=== PATIENT | female | born 1990 | race Two or more races ===

== ENCOUNTER → 2017-12-06 | Outpatient (CLI) | payer OTHER | END | disposition home or self-care (01) | LOC: KCIC US 14:17 | DX: O26.842 Uterine size-date discrepancy, second trimester (principal); Z3A.24 24 weeks gestation of pregnancy | CPT/HCPCS: 76805 ==

== ENCOUNTER 2018-02-24 21:58 | Observation (INO) | payer OTHER ==
[2016-01-04 21:19] VITALS: BP 109/50
[~2018-02-24 21:58] MED LIST: DOCU-109 PO; FLUT100D IH; HYDR-2758 PO; IBUP-1060 PO; OXYC-323 PO; SERT50TA PO
[2018-02-24 22:56] LABS: BILIRUBIN,URINE NEGATIVE (NEG); CLARITY,URINE CLOUDY; COLOR,URINE AMBER; NITRITE,URINE NEGATIVE (NEG); PROTEIN,URINE 30 mg/dL (NEG-TRACE)
[2018-02-24] MEDS ORDERED: IV RINGERS,LACTATED 1000ML 1,000 ML IV PRN (23:00)
[2018-02-24 23:04] LABS: AMPHETAMINE/METHAMPHETAMINE NEG (NEG); BARBITURATES NEG (NEG); BENZODIAZEPINES NEG (NEG); CANNABINOIDS POS (NEG); COCAINE NEG (NEG); METHADONE NEG (NEG); OPIATES NEG (NEG); PHENCYCLIDINE NEG (NEG)
[2018-02-24 23:05] LABS: BACTERIA,URINE MODERATE /HPF (0-FEW); RBC,URINE 0 /HPF (0-2); SQUAMOUS EPITHELIAL CELL,UR MANY /LPF
== END 2018-02-25 00:14 | disposition home or self-care (01) ==
LOC: 3 SO LND 21:58
PROVIDERS: ADMIT Obstetrics & Gynecology; ATTEND Obstetrics & Gynecology
DX: O26.893 Other specified pregnancy related conditions, third trimester (principal); M54.9 Dorsalgia, unspecified; Z3A.34 34 weeks gestation of pregnancy
CPT/HCPCS: 80307; 81001; 87086; G0378; G0379; J7120; G0479

== ENCOUNTER 2018-03-27 05:13 | Inpatient (IN) | payer OTHER ==
[2018-03-27] VITALS (7 sets, daily range): BP systolic 96–141; BP diastolic 41–77
[~2018-03-27] VITALS: Ht 162.6 cm; Wt 126.6 kg
[2018-03-27] MEDS ORDERED: IV RINGERS,LACTATED 1000ML 1,000 ML IV SCH (05:16)
[2018-03-27 06:17] LABS: BILIRUBIN,URINE NEGATIVE (NEG); CLARITY,URINE CLEAR; COLOR,URINE YELLOW; NITRITE,URINE NEGATIVE (NEG); PH,URINE 6.5; PROTEIN,URINE NEGATIVE (NEG-TRACE)
[2018-03-27 06:22] LABS: BARBITURATES NEG (NEG); BENZODIAZEPINES NEG (NEG); CANNABINOIDS NEG (NEG); COCAINE NEG (NEG); METHADONE NEG (NEG); OPIATES NEG (NEG); PHENCYCLIDINE NEG (NEG)
[2018-03-27 06:26] LABS: AMPHETAMINE/METHAMPHETAMINE NEG (NEG)
[2018-03-27] MEDS ORDERED: CITRIC ACID/SODIUM CITRATE 30 ML SOLUTION. PO ONE (06:30)
[2018-03-27] MEDS ORDERED: ceFAZolin SODIUM 3 GM in IV DEXTROSE 5% 100ML 100 ML IV ONE (06:30)
[2018-03-27 06:50] LABS: BACTERIA,URINE MANY /HPF (0-FEW); RBC,URINE OCC /HPF (0-2); SQUAMOUS EPITHELIAL CELL,UR MANY /LPF
[2018-03-27 07:00] LABS: HEMATOCRIT 35.9 % (36.0-47.0); HEMOGLOBIN 12.2 g/dL (12.0-15.5); RED BLOOD COUNT 4.36 x10^6/uL (3.50-5.40); RED CELL DISTRIBUTION WIDTH 14.6 % (11.5-14.5); WHITE BLOOD COUNT 12.6 x10^3/uL (4.0-11.0)
[2018-03-27] MEDS ORDERED: PHENYLEPHRINE in 0.9% NACL PF 1 MG/10 ML SYRINGE. IV ONE (07:28)
[2018-03-27] MEDS ORDERED: OXYTOCIN 10 UNIT/ML VIAL. ONE ×2 (07:29→09:09)
[2018-03-27] MEDS ORDERED: FAMOTIDINE 20 MG/2 ML VIAL ONE (07:30)
[2018-03-27] MEDS ORDERED: METOCLOPRAMIDE HCL 10 MG/2 ML VIAL. ONE (07:31)
[2018-03-27] MEDS ORDERED: fentaNYL PF VIAL 100 MCG/2 ML VIAL ONE (07:34)
[2018-03-27] MEDS ORDERED: MORPHINE PF 5 MG/10 ML VIAL. ONE (07:34)
[2018-03-27] MEDS: IV RINGERS,LACTATED 1000ML 1,000 ML IV PRN ×3 (07:38→20:35)
[2018-03-27] MEDS ORDERED: BUPIVACAINE MPF 0.75% DEXTROSE 2 ML AMPUL. ONE (07:53)
--- NOTE | 2018-03-27 08:17 | PDOC1 ---
OB - History Hx of Present Care: Good Care Ultrasounds: Normal mid trimester US Obstetrical Complications: None Medical Complications: None Past Family/Social History * Past Medical, Surgical, Family and Obstetric Histories reviewed from chart. Rubella: Immune RPR/VDRL: Negative GBS Status: Negative HBsAG: Negative OB - Chief Complaint & HPI Date of Admission: Date of Admission: Mar 27, 2018 at 05:13 Chief Complaint/History : 4 Para: 2 EGA: 39 Reason for admission: section (and BTL) Indication for : desires repeat Admission Nurse Assessment Rev: Yes OB - Admission Exam Physical Exam Vitals: VS - Last 72 Hours, by Label Date Time Temp Pulse Resp B/P (MAP) Pulse Ox O2 Delivery O2 Flow Rate FiO2 03/27/18 05:59 98.7 78 20 141/77 (98) Room Air 98.7 HEENT: Normal Heart: Regular Rate Lungs: Clear Abdomen: Gravid, Non tender, Soft Extremities: Edema Reflexes: Normal Cervical Dilatation: 1cm Effacement: 75% Station: -3 Membranes: Intact Heart Rate: Normal Accelerations: Accelerations Present Decelerations: No decelerations Contractions on Admission: 6-10 Minutes Apart Intensity: Mild Text A: 39 wks IUP Previous c/s Desires BTL P: Admit for repeat c/s and BTL. VASILIY BALDERRAMA Jr, MD Mar 27, 2018 08:17
--- NOTE | 2018-03-27 09:28 | PDOC4 ---
OB Operative Note PRE OP DIAGNOSIS: Previoujs C- section POST OP DIAGNOSIS: Previous C- section OPERATION PERFORMED: R KTSC (and BTL) Surgeon Dr. Figueroa Anesthesia: Regional (Spinal) Blood Loss 500 ml Specimen placenta and infant OB Findings: Position (Vertex), Sex (Female), (8/9), Weight (8 Lb 7 oz.) Complications none Additional Remarks ptVASILIY Zuñiga Jr, MD Mar 27, 2018 09:28
[2018-03-27] MEDS ORDERED: 0.9 % SODIUM CHLORIDE 10 ML DISP.SYRIN. IV PRN (09:30)
[2018-03-27] MEDS ORDERED: KETOROLAC 30 MG/ML VIAL. IV PRN (09:30)
[2018-03-27] MEDS ORDERED: MAG HYDROX/ALUMINUM HYD/SIMETH 30 ML ORAL.SUSP PO PRN (09:30)
[2018-03-27] MEDS ORDERED: ONDANSETRON PF 4 MG/2 ML VIAL. IV PRN (09:30)
[2018-03-27] MEDS ORDERED: OXYTOCIN 30 UNIT/500 ML PREMIX 500 ML IV PRN (09:30)
[2018-03-27] MEDS ORDERED: ZOLPIDEM 5 MG TABLET. PO PRN (09:30)
--- NOTE | 2018-03-27 10:27 | OP ---
DATE OF SURGERY: 03/27/2018 PREOPERATIVE DIAGNOSES: 1. 39 weeks' intrauterine . 2. Previous . 3. Desires bilateral tubal ligation. POSTOPERATIVE DIAGNOSES: 1. 39 weeks' intrauterine . 2. Previous . 3. Desires bilateral tubal ligation. PROCEDURE: Repeat low transverse section and bilateral tubal ligation. SURGEON: Vasiliy Figueroa MD. ANESTHESIA: Spinal. ESTIMATED BLOOD LOSS: 500 mL. COMPLICATIONS: None. FINDINGS: Viable female , Apgars 8 and 9, weight 8 pounds 7 ounces. Three-vessel cord placenta delivered manually intact. SUMMARY: A 28-year-old 4, para 2 at 39 weeks' gestation who presented for repeat and bilateral tubal ligation. She was counseled on the risks, benefits and expectations as well as the failure rate of tubal ligation and voiced clear understanding to proceed. DESCRIPTION OF PROCEDURE: The patient was taken to surgery suite and placed in dorsal supine position. She was prepped with ChloraPrep and draped in sterile fashion. After adequate anesthesia, a Pfannenstiel skin incision was made with scalpel down to and through the fascia. The fascia was extended laterally using curved Asencio scissors. The superior edge of the fascia was grasped with 2 Los clamps and dissected free of the abdominal rectus muscles using blunt dissection along with Bovie cautery. The same process took place inferiorly. Peritoneum was grasped with 2 hemostats and entered sharply with Metzenbaum scissors. This incision was extended superiorly as well as inferiorly. The Nitesh ring retractor was placed. A low transverse hysterotomy incision made with scalpel down to and through the amniotic sac. Hysterotomy incision was extended laterally and superiorly digitally. With the aid of fundal pressure, the 's head was delivered in a smooth atraumatic manner. With additional fundal pressure, the anterior shoulder was delivered followed by posterior shoulder and rest of the female infant was delivered. Infant was suctioned with bulb syringe orally and nasally, umbilical was clamped twice and cut. Viable female infant was then handed to waiting nursing staff. Umbilical cord blood was then obtained. Three-vessel cord placenta was delivered manually intact. The uterus was exteriorized and cleared of clot and debris with moist lap. Hysterotomy incision reapproximated using 1-0 Vicryl suture running locked fashion. The uterus palpated firm. Fallopian tubes, ovaries appeared normal bilaterally. Posterior cul-de-sac was cleared of clot and debris with moist lap. Hysterotomy incision was reviewed and was hemostatic. The right fallopian tube was grasped with 2 Babcocks and the mesosalpinx was undermined with Bovie cautery. Proximal and distal ends of the fallopian tube were tied with plain gut suture. The midsection of fallopian tube was removed with the aid of Metzenbaum scissors. Two telescoping ends were visualized and hemostatic. Same process took place with left adnexa. The uterus was then returned to the abdomen. Pericolic gutters were cleared of clot and debris with moist lap. Interceed was placed over the hysterotomy incision in an inverted T fashion. The Nitesh ring retractor was removed. The peritoneum was reapproximated using 1-0 Vicryl suture in a running fashion. Fascia was reapproximated with 0 Vicryl suture in a running fashion. Skin was reapproximated with 4-0 Vicryl suture in subcuticular manner. Prevena wound VAC was placed. The patient tolerated the procedure well and was taken to recovery room in stable condition. Sponge and needle count correct x 3. VASILIY FIGUEROA MD DR: RYLAND/vita JOB#: [id number] / [id number]
[2018-03-27] MEDS ORDERED: diphenhydrAMINE 50 MG/ML VIAL IVP PRN (13:10)
[2018-03-27] MEDS ORDERED: diphenhydrAMINE ORAL ELIXIR 12.5 MG/5 ML ML PO PRN (13:15)
[2018-03-27] MEDS ORDERED: FERROUS SULFATE 325 MG TABLET. PO SCH (17:00)
[2018-03-27] MEDS: IBUPROFEN 800 MG TABLET. PO PRN (20:33)
[2018-03-27] MEDS: diphenhydrAMINE ORAL ELIXIR 12.5 MG/5 ML ML PO PRN (20:33)
[2018-03-27] MEDS: DOCUSATE SODIUM 100 MG CAPSULE. PO PRN (20:33)
[2018-03-28 00:09] VITALS: BP 96/55
[2018-03-28] MEDS: oxyCODONE/APAP 5/325 1 TAB TABLET PO PRN ×3 (06:04→18:29)
[2018-03-28] MEDS: IBUPROFEN 800 MG TABLET. PO PRN ×2 (06:04→18:28)
[2018-03-28 06:08] LABS: BASO % 0 % (0-3); EOS # 0.2 x10^3/uL (0.0-0.7); EOS % 2 % (0-3); HEMATOCRIT 29.8 % (36.0-47.0); LYMPH # 2.4 x10^3/uL (1.0-4.8); LYMPH % 22 % (24-48); MEAN CORPUSCULAR HEMOGLOBIN 28 pg (25-35); MEAN CORPUSCULAR HGB CONC 34 g/dL (31-37); MEAN CORPUSCULAR VOLUME 83 fL (79-100); MONO # 0.7 x10^3/uL (0.0-1.1); MONO % 6 % (0-9); NEUT # 7.7 x10^3uL (1.8-7.7); NEUT % 70 % (31-73); PLATELET COUNT 245 x10^3/uL (140-400); RED BLOOD COUNT 3.58 x10^6/uL (3.50-5.40); RED CELL DISTRIBUTION WIDTH 14.7 % (11.5-14.5); WHITE BLOOD COUNT 10.9 x10^3/uL (4.0-11.0)
[2018-03-28 06:42] VITALS: BP 118/65
--- NOTE | 2018-03-28 08:38 | PDOC ---
OB Progress Note Date of Service 03/28/18 Time of Evaluation 0835 Notes Pt. feeling well. Pain controlled. Lab Laboratory Tests Test 03/27/18 05:43 03/27/18 06:30 03/28/18 06:00 Urine Collection Type Unknown Urine Color Yellow Urine Clarity Clear Urine pH 6.5 Urine Specific Holton 1.020 Urine Protein Negative mg/dL (NEG-TRACE) Urine Glucose (UA) Negative mg/dL (NEG) Urine Ketones (Stick) Negative mg/dL (NEG) Urine Blood Negative (NEG) Urine Nitrite Negative (NEG) Urine Bilirubin Negative (NEG) Urine Urobilinogen Dipstick 1.0 mg/dL (0.2 mg/dL) Urine Leukocyte Esterase Negative (NEG) Urine RBC Occ /HPF (0-2) Urine WBC 1-4 /HPF (0-4) Urine Squamous Epithelial Cells Many /LPF Urine Bacteria Many /HPF (0-FEW) Urine Mucus Mod /LPF Urine Opiates Screen Neg (NEG) Urine Methadone Screen Neg (NEG) Urine Barbiturates Neg (NEG) Urine Phencyclidine Screen Neg (NEG) Urine Amphetamine/Methamphetamine Neg (NEG) Urine Benzodiazepines Screen Neg (NEG) Urine Cocaine Screen Neg (NEG) Urine Cannabinoids Screen Neg (NEG) Urine Ethyl Alcohol Neg (NEG) White Blood Count 12.6 x10^3/uL (4.0-11.0) 10.9 x10^3/uL (4.0-11.0) Red Blood Count 4.36 x10^6/uL (3.50-5.40) 3.58 x10^6/uL (3.50-5.40) Hemoglobin 12.2 g/dL (12.0-15.5) 10.0 g/dL (12.0-15.5) Hematocrit 35.9 % (36.0-47.0) 29.8 % (36.0-47.0) Mean Corpuscular Volume 82 fL (79-100) 83 fL (79-100) Mean Corpuscular Hemoglobin 28 pg (25-35) 28 pg (25-35) Mean Corpuscular Hemoglobin Concent 34 g/dL (31-37) 34 g/dL (31-37) Red Cell Distribution Width 14.6 % (11.5-14.5) 14.7 % (11.5-14.5) Platelet Count 303 x10^3/uL (140-400) 245 x10^3/uL (140-400) Treponema pallidum Antibody Nonreactive (Nonreactive) Neutrophils (%) (Auto) 70 % (31-73) Lymphocytes (%) (Auto) 22 % (24-48) Monocytes (%) (Auto) 6 % (0-9) Eosinophils (%) (Auto) 2 % (0-3) Basophils (%) (Auto) 0 % (0-3) Neutrophils # (Auto) 7.7 x10^3uL (1.8-7.7) Lymphocytes # (Auto) 2.4 x10^3/uL (1.0-4.8) Monocytes # (Auto) 0.7 x10^3/uL (0.0-1.1) Eosinophils # (Auto) 0.2 x10^3/uL (0.0-0.7) Basophils # (Auto) 0.0 x10^3/uL (0.0-0.2) Laboratory Tests Test 03/28/18 06:00 White Blood Count 10.9 x10^3/uL (4.0-11.0) Red Blood Count 3.58 x10^6/uL (3.50-5.40) Hemoglobin 10.0 g/dL (12.0-15.5) Hematocrit 29.8 % (36.0-47.0) Mean Corpuscular Volume 83 fL (79-100) Mean Corpuscular Hemoglobin 28 pg (25-35) Mean Corpuscular Hemoglobin Concent 34 g/dL (31-37) Red Cell Distribution Width 14.7 % (11.5-14.5) Platelet Count 245 x10^3/uL (140-400) Neutrophils (%) (Auto) 70 % (31-73) Lymphocytes (%) (Auto) 22 % (24-48) Monocytes (%) (Auto) 6 % (0-9) Eosinophils (%) (Auto) 2 % (0-3) Basophils (%) (Auto) 0 % (0-3) Neutrophils # (Auto) 7.7 x10^3uL (1.8-7.7) Lymphocytes # (Auto) 2.4 x10^3/uL (1.0-4.8) Monocytes # (Auto) 0.7 x10^3/uL (0.0-1.1) Eosinophils # (Auto) 0.2 x10^3/uL (0.0-0.7) Basophils # (Auto) 0.0 x10^3/uL (0.0-0.2) Medications Current Medications Ringer's Solution 1,000 ml @ 1,000 mls/hr Q1H IV Last administered on at 07:39; Start 03/27/18 at 05:16; Stop 03/27/18 at 06:15; Status DC Ringer's Solution 1,000 ml @ 125 mls/hr Q8H PRN IV hydration Last administered on 03/27/18at 20:35; Start 03/27/18 at 05:30 Cefazolin Sodium 3 gm/Dextrose 100 ml @ 200 mls/hr 1X ONCE IV Last administered on 03/27/18at 07:38; Start 03/27/18 at 06:30; Stop 03/27/18 at 06:59 ; Status DC Citric Acid/ Sodium Citrate (Bicitra) 30 ml 1X ONCE PO Last administered on at 07:38; Start 03/27/18 at 06:30; Stop 03/27/18 at 06:31; Status DC Ephedrine Sulfate (Akovaz) 50 mg STK-MED ONCE .ROUTE ; Start 03/27/18 at 07:28; Stop 03/27/18 at 07:30; Status DC Phenylephrine HCl (PHENYLEPHRINE in 0.9% NACL PF) 1 mg STK-MED ONCE IV ; Start 03/27/18 at 07:28; Stop 03/27/18 at 07:30; Status DC Oxytocin (Pitocin) 10 unit STK-MED ONCE .ROUTE ; Start 03/27/18 at 07:29; Stop 03/27/18 at 07:30; Status DC Famotidine (Pepcid Vial) 20 mg STK-MED ONCE .ROUTE ; Start 03/27/18 at 07:30; Stop 03/27/18 at 07:31; Status DC Metoclopramide HCl (Reglan Vial) 10 mg STK-MED ONCE .ROUTE ; Start 03/27/18 at 07:31; Stop 03/27/18 at 07:32; Status DC Morphine Sulfate (Morphine Preservative Free) 5 mg STK-MED ONCE .ROUTE ; Start 03/27/18 at 07:34; Stop 03/27/18 at 07:35; Status DC Fentanyl Citrate (Fentanyl 2ml Vial) 100 mcg STK-MED ONCE .ROUTE ; Start at 07:34; Stop 03/27/18 at 07:35; Status DC Bupivacaine HCl/ Dextrose (Marcaine Spinal 0.75%) 2 ml STK-MED ONCE .ROUTE ; Start 03/27/18 at 07:53; Stop 03/27/18 at 07:54; Status DC Oxytocin (Pitocin) 10 unit STK-MED ONCE .ROUTE ; Start 03/27/18 at 09:09; Stop 03/27/18 at 09:10; Status DC Sodium Chloride (Normal Saline Flush) 3 ml QSHIFT PRN IV AFTER MEDS AND BLOOD DRAWS; Start 03/27/18 at 09:30 Oxytocin/Sodium Chloride 500 ml @ 125 mls/hr CONT PRN IV EXCESSIVE POST- BLEEDING; Start 03/27/18 at 09:30; Stop 03/27/18 at 17:29; Status DC Ibuprofen (Motrin) 800 mg PRN Q8HRS PRN PO INFLAMMATION Last administered on at 06:04; Start 03/27/18 at 09:30 Ondansetron HCl (Zofran) 4 mg PRN Q6HRS PRN IV NAUSEA/VOMITING; Start 03/27/18 at 09:30 Docusate Sodium (Colace) 100 mg PRN BID PRN PO CONSTIPATION Last administered on 03/27/18at 20:33; Start 03/27/18 at 09:30 Al Hydroxide/Mg Hydroxide (Mylanta Plus Xs) 30 ml PRN Q4HRS PRN PO HEARTBURN / GAS; Start 03/27/18 at 09:30 Simethicone (Gas-X) 80 mg PRN AFTMEALHC PRN PO GAS / BLOATING; Start 03/27/18 at 09:30 Diphenhydramine HCl (Benadryl Oral Elixir) 12.5 mg PRN Q6HRS PRN PO ITCHING Last administered on 03/27/18at 20:33; Start 03/27/18 at 09:30 Ferrous Sulfate (Feosol) 325 mg BIDWMEALS PO ; Start 03/27/18 at 17:00 Zolpidem Tartrate (Ambien) 5 mg PRN QHS PRN PO INSOMNIA, MAY REPEAT X1; Start 03/27/18 at 09:30 Oxycodone/ Acetaminophen (Percocet 5/325) 2 tab PRN Q4HRS PRN PO MODERATE PAIN , SEVERE PAIN Last administered on 03/28/18at 06:04; Start 03/27/18 at 09:30 Ketorolac Tromethamine (Toradol 30mg Vial) 30 mg PRN Q6HRS PRN IV PAIN Last administered on 03/27/18at 12:00; Start 03/27/18 at 09:30; Stop 04/01/18 at 09:29 Diphenhydramine HCl (Benadryl) 12.5 mg PRN Q6HRS PRN IVP ITCHING Last administered on 03/27/18at 13:25; Start 03/27/18 at 13:10 Diphenhydramine HCl (Benadryl Oral Elixir) 12.5 mg PRN Q6HRS PRN PO ITCHING; Start 03/27/18 at 13:15; Status Cancel Active Scripts Active Hydrocodone-Apap 5-325 (Hydrocodone Bit/Acetaminophen) 1 Each Tablet 1 Tab PO PRN Q6HRS PRN Percocet 5-325 Mg Tablet (Oxycodone/Acetaminophen) 1 Each Tablet 1-2 Tab PO Q4- 6HRS Ibuprofen 800 Mg Tablet 800 Mg PO PRN Q8HRS PRN Colace (Docusate Sodium) 100 Mg Capsule 100 Mg PO PRN BID PRN Reported Flovent 100MCG Diskus (Fluticasone Propionate) 100 Mcg Disk.w.dev 2 Puff IH BID PRN Zoloft (Sertraline Hcl) 50 Mg Tablet 50 Mg PO DAILY Exam Abd: soft, mild tenderness, fundus firm Prevena in place and dry. Assessment POD#1 s/p repeat c/s and BTL Plan of Care: Continue current Tx, VASILIY Nuñez Jr, MD Mar 28, 2018 08:38
[2018-03-28 10:06] VITALS: BP 110/68
[2018-03-28] MEDS: DOCUSATE SODIUM 100 MG CAPSULE. PO PRN ×2 (10:06→18:28)
[2018-03-28] MEDS: SIMETHICONE 80 MG TAB.CHEW PO PRN ×2 (10:06→18:28)
[2018-03-28] MEDS: diphenhydrAMINE ORAL ELIXIR 12.5 MG/5 ML ML PO PRN (10:06)
[2018-03-28 14:20] VITALS: BP 112/67
--- NOTE | 2018-03-28 17:09 | PATHOLOGY ---
[facility] Accession Number: [id number] . 01 Material submitted: . PART A: LEFT FALLOPIAN TUBE PART B: RIGHT FALLOPIAN TUBE . 01 Clinical history: . Term , previous . 02 Diagnosis: A. Left tubal ligation: - Segment of fallopian tube confirmed. . B. Right tubal ligation: - Segment of fallopian tube confirmed. ([facility] 03/28/2018) QTP/03/28/2018 . 02 Electronically signed: . Filemon Reynolds MD, Pathologist NPI- [id number] . 01 Gross description: . A.The specimen is received in formalin, labeled "Santosortiz, Melissa, left fallopian tube", is a cylindrical segment of diaz-pink rubbery soft tissue measuring 1.3 cm in length and up to 0.4 cm in diameter. The serosa is diaz-pink. Sectioning reveals a well-defined lumen. The specimen is entirely submitted in A1. . B.The specimen is received in formalin, labeled "Santosortiz, Melissa, right fallopian tube", is a cylindrical segment of diaz-pink rubbery soft tissue measuring 1.7 cm in length and up to 0.3 cm in diameter. The serosa is diaz-pink. Sectioning reveals a well-defined lumen. The specimen is entirely submitted in B1. ([facility]; 03/27/2018) SHS/SHS . 02 Pathologist provided ICD-10: Z30.2 . 02 CPT . 502168, 825614 Specimen Comment: A courtesy copy of this report has been sent to Specimen Comment: [phone]. Specimen Comment: Report sent to Performed at: [address] [place] [address] [facility] [address], [place], [place] [id number] MD Riley Kaur MD Phone: [phone] Performed at: [address] [id number] MD Filemon Reynolds MD Phone: [phone]
[2018-03-28] MEDS ORDERED: BISACODYL 10 MG SUPP.RECT. PR PRN (18:45)
[2018-03-28 23:00] VITALS: BP 115/69
[2018-03-29] MEDS: IBUPROFEN 800 MG TABLET. PO PRN ×3 (02:41→23:56)
[2018-03-29] MEDS: oxyCODONE/APAP 5/325 1 TAB TABLET PO PRN ×4 (02:42→21:05)
[2018-03-29] MEDS: SIMETHICONE 80 MG TAB.CHEW PO PRN ×2 (02:42→08:54)
[2018-03-29 06:27] VITALS: BP 114/75
[2018-03-29] MEDS: DOCUSATE SODIUM 100 MG CAPSULE. PO PRN ×2 (08:54→21:05)
--- NOTE | 2018-03-29 12:57 | PDOC ---
OB Progress Note Date of Service 03/28/18 Time of Evaluation 1255 Notes Pt. feeling well. No complaints. Lab Laboratory Tests Test 03/28/18 06:00 White Blood Count 10.9 x10^3/uL (4.0-11.0) Red Blood Count 3.58 x10^6/uL (3.50-5.40) Hemoglobin 10.0 g/dL (12.0-15.5) Hematocrit 29.8 % (36.0-47.0) Mean Corpuscular Volume 83 fL (79-100) Mean Corpuscular Hemoglobin 28 pg (25-35) Mean Corpuscular Hemoglobin Concent 34 g/dL (31-37) Red Cell Distribution Width 14.7 % (11.5-14.5) Platelet Count 245 x10^3/uL (140-400) Neutrophils (%) (Auto) 70 % (31-73) Lymphocytes (%) (Auto) 22 % (24-48) Monocytes (%) (Auto) 6 % (0-9) Eosinophils (%) (Auto) 2 % (0-3) Basophils (%) (Auto) 0 % (0-3) Neutrophils # (Auto) 7.7 x10^3uL (1.8-7.7) Lymphocytes # (Auto) 2.4 x10^3/uL (1.0-4.8) Monocytes # (Auto) 0.7 x10^3/uL (0.0-1.1) Eosinophils # (Auto) 0.2 x10^3/uL (0.0-0.7) Basophils # (Auto) 0.0 x10^3/uL (0.0-0.2) Medications Current Medications Ringer's Solution 1,000 ml @ 1,000 mls/hr Q1H IV Last administered on at 07:39; Start 03/27/18 at 05:16; Stop 03/27/18 at 06:15; Status DC Ringer's Solution 1,000 ml @ 125 mls/hr Q8H PRN IV hydration Last administered on 03/27/18at 20:35; Start 03/27/18 at 05:30 Cefazolin Sodium 3 gm/Dextrose 100 ml @ 200 mls/hr 1X ONCE IV Last administered on 03/27/18at 07:38; Start 03/27/18 at 06:30; Stop 03/27/18 at 06:59 ; Status DC Citric Acid/ Sodium Citrate (Bicitra) 30 ml 1X ONCE PO Last administered on at 07:38; Start 03/27/18 at 06:30; Stop 03/27/18 at 06:31; Status DC Ephedrine Sulfate (Akovaz) 50 mg STK-MED ONCE .ROUTE ; Start 03/27/18 at 07:28; Stop 03/27/18 at 07:30; Status DC Phenylephrine HCl (PHENYLEPHRINE in 0.9% NACL PF) 1 mg STK-MED ONCE IV ; Start 03/27/18 at 07:28; Stop 03/27/18 at 07:30; Status DC Oxytocin (Pitocin) 10 unit STK-MED ONCE .ROUTE ; Start 03/27/18 at 07:29; Stop 03/27/18 at 07:30; Status DC Famotidine (Pepcid Vial) 20 mg STK-MED ONCE .ROUTE ; Start 03/27/18 at 07:30; Stop 03/27/18 at 07:31; Status DC Metoclopramide HCl (Reglan Vial) 10 mg STK-MED ONCE .ROUTE ; Start 03/27/18 at 07:31; Stop 03/27/18 at 07:32; Status DC Morphine Sulfate (Morphine Preservative Free) 5 mg STK-MED ONCE .ROUTE ; Start 03/27/18 at 07:34; Stop 03/27/18 at 07:35; Status DC Fentanyl Citrate (Fentanyl 2ml Vial) 100 mcg STK-MED ONCE .ROUTE ; Start at 07:34; Stop 03/27/18 at 07:35; Status DC Bupivacaine HCl/ Dextrose (Marcaine Spinal 0.75%) 2 ml STK-MED ONCE .ROUTE ; Start 03/27/18 at 07:53; Stop 03/27/18 at 07:54; Status DC Oxytocin (Pitocin) 10 unit STK-MED ONCE .ROUTE ; Start 03/27/18 at 09:09; Stop 03/27/18 at 09:10; Status DC Sodium Chloride (Normal Saline Flush) 3 ml QSHIFT PRN IV AFTER MEDS AND BLOOD DRAWS; Start 03/27/18 at 09:30 Oxytocin/Sodium Chloride 500 ml @ 125 mls/hr CONT PRN IV EXCESSIVE POST- BLEEDING; Start 03/27/18 at 09:30; Stop 03/27/18 at 17:29; Status DC Ibuprofen (Motrin) 800 mg PRN Q8HRS PRN PO INFLAMMATION Last administered on at 02:41; Start 03/27/18 at 09:30 Ondansetron HCl (Zofran) 4 mg PRN Q6HRS PRN IV NAUSEA/VOMITING; Start 03/27/18 at 09:30 Docusate Sodium (Colace) 100 mg PRN BID PRN PO CONSTIPATION Last administered on 03/29/18at 08:54; Start 03/27/18 at 09:30 Al Hydroxide/Mg Hydroxide (Mylanta Plus Xs) 30 ml PRN Q4HRS PRN PO HEARTBURN / GAS; Start 03/27/18 at 09:30 Simethicone (Gas-X) 80 mg PRN AFTMEALHC PRN PO GAS / BLOATING Last administered on 03/29/18at 08:54; Start 03/27/18 at 09:30 Diphenhydramine HCl (Benadryl Oral Elixir) 12.5 mg PRN Q6HRS PRN PO ITCHING Last administered on 03/28/18at 10:06; Start 03/27/18 at 09:30 Ferrous Sulfate (Feosol) 325 mg BIDWMEALS PO ; Start 03/27/18 at 17:00 Zolpidem Tartrate (Ambien) 5 mg PRN QHS PRN PO INSOMNIA, MAY REPEAT X1; Start 03/27/18 at 09:30 Oxycodone/ Acetaminophen (Percocet 5/325) 2 tab PRN Q4HRS PRN PO MODERATE PAIN , SEVERE PAIN Last administered on 03/29/18at 08:54; Start 03/27/18 at 09:30 Ketorolac Tromethamine (Toradol 30mg Vial) 30 mg PRN Q6HRS PRN IV PAIN Last administered on 03/27/18at 12:00; Start 03/27/18 at 09:30; Stop 04/01/18 at 09:29 Diphenhydramine HCl (Benadryl) 12.5 mg PRN Q6HRS PRN IVP ITCHING Last administered on 03/27/18at 13:25; Start 03/27/18 at 13:10 Diphenhydramine HCl (Benadryl Oral Elixir) 12.5 mg PRN Q6HRS PRN PO ITCHING; Start 03/27/18 at 13:15; Status Cancel Bisacodyl (Dulcolax Supp) 10 mg PRN DAILY PRN MS CONSTIPATION Last administered on 03/28/18at 23:33; Start 03/28/18 at 18:45 Active Scripts Active Hydrocodone-Apap 5-325 (Hydrocodone Bit/Acetaminophen) 1 Each Tablet 1 Tab PO PRN Q6HRS PRN Percocet 5-325 Mg Tablet (Oxycodone/Acetaminophen) 1 Each Tablet 1-2 Tab PO Q4- 6HRS Ibuprofen 800 Mg Tablet 800 Mg PO PRN Q8HRS PRN Colace (Docusate Sodium) 100 Mg Capsule 100 Mg PO PRN BID PRN Reported Flovent 100MCG Diskus (Fluticasone Propionate) 100 Mcg Disk.w.dev 2 Puff IH BID PRN Zoloft (Sertraline Hcl) 50 Mg Tablet 50 Mg PO DAILY Exam Abd: soft, non tender, fundus firm Prevena in place Assessment POD#2 s/p repeat c/s and BTL Plan of Care: Continue current Tx, Mgmt VASILIY BALDERRAMA Jr, MD Mar 29, 2018 12:57
[2018-03-29 22:50] VITALS: BP 107/69
[2018-03-30] MEDS: oxyCODONE/APAP 5/325 1 TAB TABLET PO PRN ×2 (05:17→14:23)
[2018-03-30 06:36] VITALS: BP 112/71
[2018-03-30] MEDS: DOCUSATE SODIUM 100 MG CAPSULE. PO PRN ×3 (08:31→14:23)
[2018-03-30] MEDS: IBUPROFEN 800 MG TABLET. PO PRN ×2 (08:31→08:32)
--- NOTE | 2018-03-30 14:05 | DISCH ---
DISCHARGE INSTRUCTIONS Condition on Discharge Condition on Discharge: Stable Activity After Discharge Activity Instructions for Disc: Activity as tolerated Lifting Instructions after Dis: No heavy lifting Driving Instructions after Dis: No driving for 2 weeks Diet after Discharge Diet after Discharge: Regular Contacting the DRAndreia after DC Call your doctor for: Concerns you may have Follow-Up Follow up with: Dr. Figueroa in 2 weeks VASILIY FIGUEROA Jr, MD Mar 30, 2018 14:05
[2018-03-30] MEDS ORDERED: OXYC-323 PO (14:08)
[2018-03-30] MEDS ORDERED: DOCU-109 PO (14:08)
[2018-03-30] MEDS ORDERED: IBUP-1060 PO (14:08)
[2018-03-30 14:15] VITALS: BP 111/75
== END 2018-03-30 15:10 | disposition home or self-care (01) | DRG 784 ==
LOC: 3 SO LND 05:13 → 3 NORTH 12:50
PROVIDERS: ADMIT Obstetrics & Gynecology; ATTEND Obstetrics & Gynecology
PROC: 10D00Z1 Extraction of Products of Conception, Low, Open Approach (ICD-10-PCS; principal; 2018-03-27)
PROC: 0UB70ZZ Excision of Bilateral Fallopian Tubes, Open Approach (ICD-10-PCS; 2018-03-27)
DX: O34.211 Maternal care for low transverse scar from previous cesarean delivery (principal); R71.0 Precipitous drop in hematocrit; O99.12 Other diseases of the blood and blood-forming organs and certain disorders involving the immune mechanism complicating childbirth; Z3A.39 39 weeks gestation of pregnancy; Z37.0 Single live birth; Z30.2 Encounter for sterilization
CPT/HCPCS: 36415; 80307; 81001; 85025; 85027; 86592; 86850; 86900; 86901; 87086; 88302; C1781; J0690; J1200; J1885; J2270; J2370; J2590; J2765; J3010; J7030; J7120; S0028; G0479